=== PATIENT | male | born 1980 | race Caucasian/White ===

== ENCOUNTER 2019-02-19 04:51 | Emergency (ER) | payer OTHER ==
[~2019-02-19] VITALS: Ht 165.1 cm; Wt 81.6 kg
[2019-02-19 05:00] VITALS: BP_SYST 140
--- NOTE | 2019-02-19 05:00 | NUR ---
Patient to ER bed 6 to gown for evaluation. Side rails up. Report given to Bradford WYNN.
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
--- NOTE | 2019-02-19 05:10 | NUR ---
ER at bedside examining patient.
[2019-02-19] MEDS ORDERED: IBUPROFEN 800 MG TABLET PO ONE (05:30)
[2019-02-19 06:03] VITALS: BP_SYST 140
--- NOTE | 2019-02-19 06:03 | NUR ---
Patient given written and verbal discharge instructions and verbalizes understanding. ER MD discussed with patient the results and treatment provided. Patient in stable condition. ID arm band removed. Rx of flexeril, tylenol with codeine, ibuprofen given. Patient educated on pain management and to follow up with PMD. Pain Scale 0. Opportunity for questions provided and answered. Medication side effect fact sheet provided.
== END 2019-02-19 06:03 | disposition home or self-care (01) ==
LOC: SED 04:51
DX: S46.911A Strain of unspecified muscle, fascia and tendon at shoulder and upper arm level, right arm, initial encounter (principal); X58.XXXA Exposure to other specified factors, initial encounter; Y93.89 Activity, other specified; Y92.89 Other specified places as the place of occurrence of the external cause; Y99.8 Other external cause status
CPT/HCPCS: 99283

== ENCOUNTER 2021-07-18 16:33 | Emergency (ER) | payer OTHER ==
[~2021-07-18] VITALS: Ht 165.1 cm; Wt 78.5 kg
[2021-07-18 16:56] VITALS: BP_SYST 147
--- NOTE | 2021-07-18 17:01 | NUR ---
Patient to ER bed 2 to gown for evaluation. Side rails up. Report given to KAYLA WYNN
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
--- NOTE | 2021-07-18 17:25 | NUR ---
ER DR. FRIEDMAN AT THE BESIDE EXAMINING PT
[2021-07-18] MEDS ORDERED: KETOROLAC TROMETHAMINE 30 MG VIAL IM ONE (17:45)
--- NOTE | 2021-07-18 17:55 | NUR ---
LAB AT THE BEDSIDE FOR BLOOD DRAW
[2021-07-18 18:07] LABS: BASOPHILS # (AUTO) 0.1 K/uL (0.0-0.2); BASOPHILS % (AUTO) 0.7 % (0.0-2.0); EOSINOPHILS # (AUTO) 0.1 K/uL (0.0-0.4); HEMATOCRIT 44.4 % (36-54); HEMOGLOBIN 14.9 g/dL (14.0-18.0); LYMPHOCYTES # (AUTO) 1.3 K/uL (1.0-5.5); LYMPHOCYTES % (AUTO) 15.5 % (20.5-51.5); MEAN CORPUSCULAR HEMOGLOBIN 30 pg (27-31); MEAN CORPUSCULAR HGB CONC 34 % (32-36); MEAN CORPUSCULAR VOLUME 89 fL (79.0-98.0); MONOCYTES # (AUTO) 0.5 K/uL (0.0-1.0); MONOCYTES % (AUTO) 6.4 % (1.7-9.3); NEUTROPHILS # (AUTO) 6.2 K/uL (1.8-7.7); NEUTROPHILS % (AUTO) 76.4 % (40.0-70.0); PLATELET COUNT (AUTO) 187 K/uL (130-430); RED BLOOD CELL COUNT(AUTO) 5.01 MIL/uL (4.2-6.2); RED CELL DISTRIBUTION WIDTH 13.3 % (9.0-15.0); WHITE BLOOD COUNT (AUTO) 8.2 K/uL (4.8-10.8)
--- NOTE | 2021-07-18 18:07 | NUR ---
ULTRASOUND AT THE BEDSIDE
[2021-07-18] MEDS ORDERED: IBUP-1969 PO (18:34)
[2021-07-18 18:48] LABS: ALBUMIN 4.1 g/dL (3.4-4.8); BILIRUBIN,DIRECT 0.2 mg/dL (0.0-0.3); CALCIUM 8.8 mg/dL (8.4-11.0); CREATININE 1.13 mg/dL (0.55-1.30); TOTAL BILIRUBIN 0.6 mg/dL (0.0-1.0)
[2021-07-18 18:57] LABS: POTASSIUM 3.7 mmol/L (3.5-5.1)
--- NOTE | 2021-07-18 19:01 | NUR ---
REPORT GIVEN TO KINGSLEY HERNANDEZ FOR CONTINUING CARE
--- NOTE | 2021-07-18 19:21 | NUR ---
PATIENT RESTING ON GURNEY. PT STATED THE PAIN IS MUCH BETTER AND FEELS MUCH BETTER. PENDING LAB RESULTS AND AWAITING DISPOSITION.
[2021-07-18] MEDS ORDERED: ONDA-8 TL (19:41)
[2021-07-18 19:50] VITALS: BP_SYST 147
--- NOTE | 2021-07-18 19:52 | NUR ---
Patient given written and verbal discharge instructions and verbalizes understanding. DR. ELDER ANGLIN MD discussed with patient the results and treatment provided. Patient in stable condition. ID arm band removed. Rx of IBUPROFEN, ZOFRAN given. Patient educated on pain management and to follow up with PMD. Pain Scale 0/10 Opportunity for questions provided and answered. Medication side effect fact sheet provided.
== END 2021-07-18 19:52 | disposition home or self-care (01) ==
LOC: SED 16:33
DX: K80.70 Calculus of gallbladder and bile duct without cholecystitis without obstruction (principal); Z79.899 Other long term (current) drug therapy
CPT/HCPCS: 36415; 76700; 80048; 80076; 83690; 85025; 96372; 99284; J1885